=== PATIENT | female | born 1985 | race Two or more races ===

== ENCOUNTER 2017-01-16 00:33 | Emergency (ER) | payer MEDICAID, OTHER ==
[~2017-01-16] VITALS: Ht 165.1 cm; Wt 59.0 kg
--- NOTE | 2017-01-16 00:40 | NUR ---
TO BED 5 A 31 YO FEMALE BB RA FOR N/V/D, ABD PAIN. PT IS AAOX4, NAD NOTED, BREATHING EVEN AND UNLABORED. PLACED ON CARDIAC AND VS MONITORING. GOWNED. COMFORT MEASURES RENDERED.
[2017-01-16] MEDS ORDERED: ONDANSETRON HCL/PF 4 MG/2 ML VIAL IVP ONE (01:00)
[2017-01-16] MEDS ORDERED: HYDROMORPHONE INJ 2 MG/ML DISP.SYRIN IV ONE (01:00)
[2017-01-16] MEDS ORDERED: IV NS 0.9% 1,000 ML BAG IV ONE (01:00)
--- NOTE | 2017-01-16 01:05 | NUR ---
started a saline lock on the lac g18, blood drawn and sent to lab.
[2017-01-16 01:07] LABS: APPEARANCE,URINE SL CLOUDY (CLEAR); BILIRUBIN,URINE 2+ (NEGATIVE); BLOOD, URINE NEGATIVE Ery/uL (NEGATIVE); COLOR,URINE YELLOW (YELLOW); KETONES,URINE 1+ (NEGATIVE); LEUKOCYTE ESTERASE ,URINE 2+ (NEGATIVE); NITRITE, URINE NEGATIVE (NEGATIVE); PROTEIN,URINE TRACE mg/dl (NEGATIVE); UGLUCOSE NEGATIVE (NEGATIVE); UROBILINOGEN,URINE 0.2 EU/dL (0.2)
[2017-01-16] MEDS ORDERED: ONDANSETRON HCL/PF 4 MG/2 ML VIAL ONE ×2 (01:09→02:49)
[2017-01-16] MEDS ORDERED: HYDROMORPHONE INJ 2 MG/ML DISP.SYRIN ONE (01:10)
[2017-01-16 01:11] LABS: RBC,URINE NONE SEEN /HPF (0-2)
[2017-01-16 01:12] LABS: BACTERIA,URINE None seen /HPF (None Seen); SQUAMOUS EPITHELIAL CELL,UR Many /HPF (None Seen)
[2017-01-16 01:18] LABS: BASOPHILS % (AUTO) 0.2 % (0.0-2.0); EOSINOPHILS # (AUTO) 0.1 /CMM (0.0-0.7); EOSINOPHILS % (AUTO) 0.5 % (0.0-6.0); HEMATOCRIT 45 % (33-45); HEMOGLOBIN 14.7 g/dL (11.5-14.8); LYMPHOCYTES # (AUTO) 2.9 /CMM (0.8-4.8); LYMPHOCYTES % (AUTO) 19.1 % (20.0-44.0); MEAN CORPUSCULAR HEMOGLOBIN 25 PG (26.0-33.0); MEAN CORPUSCULAR HGB CONC 33 g/dl (31.0-36.0); MEAN CORPUSCULAR VOLUME 76 fL (82-100); MONOCYTES % (AUTO) 6.7 % (2.0-12.0); NEUTROPHILS # (AUTO) 11.1 /CMM (1.8-8.9); NEUTROPHILS % (AUTO) 73.5 % (43.0-81.0); PLATELET COUNT (AUTO) 310 /CMM (150-450); RDW COEFFICIENT OF VARIATION 16.2 (11.5-15.0); RED BLOOD CELL COUNT(AUTO) 5.96 MIL/uL (4.0-5.2)
--- NOTE | 2017-01-16 01:18 | NUR ---
medicated patient as ordered by Dr Putnam.
[2017-01-16 01:30] LABS: CALCIUM, SERUM 9.4 mg/dL (8.5-10.1); CARBON DIOXIDE 25 mmol/L (21-32); CHLORIDE 100 mmol/L (98-107); GLUCOSE 269 mg/dL (74-106); POTASSIUM 3.8 mmol/L (3.5-5.1); SODIUM SERUM 135 mmol/L (136-145); UREA NITROGEN, BLOOD 17 mg/dL (7-18)
[2017-01-16 01:34] LABS: INR 0.94 (0.87-1.13); PROTHROMBIN TIME 9.8 SECS (9.5-12.7)
[2017-01-16 01:35] LABS: ALANINE AMINOTRANSFERASE 21 U/L (12-78); ALBUMIN 3.6 g/dL (3.4-5.0); ALKALINE PHOSPHATASE 129 U/L (46-116); ASPARTATE AMINOTRANSFERASE 16 U/L (15-37); BILIRUBIN,DIRECT 0.1 mg/dL (0.0-0.2); BILIRUBIN,TOTAL 0.5 mg/dL (0.2-1.0); LIPASE 122 U/L (73-393)
[2017-01-16 01:37] LABS: TROPONIN I < 0.017 ng/mL (0.00-0.056)
--- NOTE | 2017-01-16 01:53 | NUR ---
patient to radiology.
[2017-01-16] MEDS ORDERED: CEFTRIAXONE 1GM BAG (ER ONLY) 50 ML IV ONE (02:52)
--- NOTE | 2017-01-16 02:59 | NUR ---
CALLED [facility]. [facility] WILL RETURN CALL.
[2017-01-16] MEDS ORDERED: ONDANSETRON HCL/PF 4 MG/2 ML VIAL IV ONE (03:00)
[2017-01-16] MEDS ORDERED: CEFTRIAXONE 1GM BAG (ER ONLY) 1 GM/50 ML PIGGYBACK IV ONE (03:00)
--- NOTE | 2017-01-16 03:49 | NUR ---
[facility] INFO: GOING TO [facility] ER CALL FOR REPORT: [phone] DO [facility] ETA: [id number]
--- NOTE | 2017-01-16 04:07 | NUR ---
CALLED [facility] AND GAVE REPORT TO LUBA LECHUGA.
[2017-01-16 04:58] VITALS: BP 123/86
--- NOTE | 2017-01-16 05:00 | NUR ---
REPORT GIVEN TO [facility] FOR TRANSFER. VSS FOR TRANSFER.
[2017-01-16 07:12] LABS: ABG BASE EXCESS -1.6 mmol/L; ABG OXYGEN SATURATION 81.3 % (92.0-98.5); ABG PCO2 43.7 mmHg (35.0-45.0); ABG PH 7.358 (7.350-7.450); ABG PO2 46.4 mmHg (75.0-100.0); COHb 0.8 % (0.5-1.5); MetHb 0.4 % (0.0-1.5); O2Hb 80.3 % (94.0-97.0); VENT MODE, BG ROOM AIR
== END 2017-01-16 05:02 | disposition short-term general hospital (02) ==
LOC: ER 00:34
DX: R10.84 Generalized abdominal pain (principal); N30.90 Cystitis, unspecified without hematuria; K56.7 Ileus, unspecified; E10.9 Type 1 diabetes mellitus without complications; Z88.0 Allergy status to penicillin; Z79.4 Long term (current) use of insulin
CPT/HCPCS: 36415; 36600; 74176; 80048; 80076; 81001; 82962; 83690; 84484; 84703; 85025; 85730; 87086; 93005; 96361; 96365; 96375; 96376; 99285; A4606; J0696; J1170; J2405 ×2; J7030; Z7610; 81000-TC

== ENCOUNTER 2017-03-04 20:56 | Emergency (ER) | payer MEDICAID ==
[~2017-03-04] VITALS: Ht 160 cm; Wt 70.8 kg
--- NOTE | 2017-03-04 21:00 | NUR ---
[id number], PT C/O STATES SHE WANTS TO KILL HERSELF BY TAKING A WHOLE BOTTLE OF INSULIN. NAD NOTED, VSS, RESP EVEN AND UNLABORED, RESP EVEN AND UNLABORED. WAITING FOR MD MEHTA.
[2017-03-04 22:30] LABS: BASOPHILS % (AUTO) 0.3 % (0.0-2.0); HEMATOCRIT 45 % (33-45); HEMOGLOBIN 14.7 g/dL (11.5-14.8); LYMPHOCYTES # (AUTO) 2.1 /CMM (0.8-4.8); LYMPHOCYTES % (AUTO) 19.1 % (20.0-44.0); MEAN CORPUSCULAR HEMOGLOBIN 26 PG (26.0-33.0); MEAN CORPUSCULAR HGB CONC 33 g/dl (31.0-36.0); MEAN CORPUSCULAR VOLUME 78 fL (82-100); NEUTROPHILS # (AUTO) 7.8 /CMM (1.8-8.9); NEUTROPHILS % (AUTO) 71.6 % (43.0-81.0); PLATELET COUNT (AUTO) 271 /CMM (150-450); RDW COEFFICIENT OF VARIATION 16.1 (11.5-15.0); RED BLOOD CELL COUNT(AUTO) 5.68 MIL/uL (4.0-5.2); WHITE BLOOD COUNT (AUTO) 10.9 K/uL (4.3-11.0)
--- NOTE | 2017-03-04 22:47 | NUR ---
URINE SENT TO LAB
[2017-03-04 23:01] LABS: ALANINE AMINOTRANSFERASE 25 U/L (12-78); ALBUMIN 4.3 g/dL (3.4-5.0); ALKALINE PHOSPHATASE 137 U/L (46-116); ASPARTATE AMINOTRANSFERASE 18 U/L (15-37); BILIRUBIN,DIRECT 0.1 mg/dL (0.0-0.2); BILIRUBIN,TOTAL 0.9 mg/dL (0.2-1.0); CALCIUM, SERUM 9.9 mg/dL (8.5-10.1); CARBON DIOXIDE 25 mmol/L (21-32); CHLORIDE 99 mmol/L (98-107); POTASSIUM 4.1 mmol/L (3.5-5.1); SALICYLATE < 0.2 mg/dL (2.8-20.0); SODIUM SERUM 135 mmol/L (136-145); TOTAL PROTEIN, SERUM 8.8 g/dL (6.4-8.2); UREA NITROGEN, BLOOD 12 mg/dL (7-18)
[2017-03-04 23:02] LABS: ACETAMINOPHEN 0 ug/ml (10-30); ALCOHOL, BLOOD < 3 mg/dL (0-0); GLUCOSE 382 mg/dL (74-106)
[2017-03-04 23:12] LABS: APPEARANCE,URINE CLEAR (CLEAR); BILIRUBIN,URINE NEGATIVE (NEGATIVE); BLOOD, URINE NEGATIVE Ery/uL (NEGATIVE); COLOR,URINE YELLOW (YELLOW); KETONES,URINE NEGATIVE (NEGATIVE); LEUKOCYTE ESTERASE ,URINE NEGATIVE (NEGATIVE); NITRITE, URINE NEGATIVE (NEGATIVE); PH,URINE 5.5 (5.0-8.0); PROTEIN,URINE NEGATIVE (NEGATIVE); UGLUCOSE 3+ mg/dL (NEGATIVE); UROBILINOGEN,URINE 0.2 EU/dL (0.2)
[2017-03-04 23:17] LABS: BACTERIA,URINE None seen /HPF (None Seen); RBC,URINE NONE SEEN /HPF (0-2); SQUAMOUS EPITHELIAL CELL,UR Few /HPF (None Seen)
[2017-03-04] MEDS ORDERED: IV NS 0.9% 1,000 ML BAG IV ONE (23:30)
--- NOTE | 2017-03-04 23:40 | NUR ---
CALLED [facility] FOR PSYCH EVAL. MEETA
--- NOTE | 2017-03-05 00:04 | NUR ---
Patient is resting comfortably in bed with eyes closed. Easily aroused. VSS
--- NOTE | 2017-03-05 00:08 | NUR ---
[facility] AT BEDSIDE FOR EVAL
--- NOTE | 2017-03-05 00:15 | NUR ---
CRISIS AT BS
--- NOTE | 2017-03-05 00:47 | NUR ---
SPOKE WITH [facility]. CASE ASSIGNED TO [facility].
--- NOTE | 2017-03-05 04:38 | NUR ---
PT GOING TO [facility] [address] ADDRESS: [address] [place] [address] NUMBER FOR REPORT: [phone] RAMIREZ
--- NOTE | 2017-03-05 04:44 | NUR ---
CALLED [facility] FOR TRANSPORT. ETA 20 MINS. RUN #: [id number]
[2017-03-05 05:24] VITALS: BP 154/91
== END 2017-03-05 05:25 ==
LOC: ER 20:57
DX: F32.9 Major depressive disorder, single episode, unspecified (principal); E11.9 Type 2 diabetes mellitus without complications; F15.90 Other stimulant use, unspecified, uncomplicated; Z79.4 Long term (current) use of insulin; Z88.0 Allergy status to penicillin
CPT/HCPCS: 36415; 80048; 80076; 80305; 80329; 81001; 84703; 85025; 96360; 99285; A4606; G0480 ×2; J7030; Z7610; 81000-TC